=== PATIENT | female | born 1945 | race Caucasian/White ===

== ENCOUNTER 2017-03-25 10:06 | Day surgery (SDC) | payer OTHER ==
[2017-03-25] MEDS ORDERED: Lactated Ringer's 500 ML IV ONE (10:37)
[2017-03-25 10:44] VITALS: O2SAT 96
[2017-03-25] MEDS ORDERED: Propofol 10 mg/ml Inj (20 ML) ONE (11:20)
[2017-03-25 14:18] VITALS: BP 131/71; PULSE 66; RESP 16; TEMP 98
== END 2017-03-25 14:19 | disposition home or self-care (01) ==
LOC: H.ENDO 10:06
PROVIDERS: ATTEND Internal Medicine Gastroenterology
DX: R10.13 Epigastric pain (principal); R12 Heartburn; E11.9 Type 2 diabetes mellitus without complications; E78.5 Hyperlipidemia, unspecified; I10 Essential (primary) hypertension; K31.9 Disease of stomach and duodenum, unspecified; K31.7 Polyp of stomach and duodenum; R14.0 Abdominal distension (gaseous)
CPT/HCPCS: 43239; 82948; 88305; J2001; J2704; J7120

== ENCOUNTER 2017-04-08 09:22 | Day surgery (SDC) | payer OTHER ==
[2017-04-08] MEDS ORDERED: Lactated Ringer's 500 ML IV ONE (09:42)
[2017-04-08] MEDS ORDERED: Propofol 10 mg/ml Inj (20 ML) ONE (10:39)
[2017-04-08 11:09] VITALS: TEMP 97
[2017-04-08 11:19] VITALS: BP 119/59; PULSE 68; RESP 13
== END 2017-04-08 11:51 | disposition home or self-care (01) ==
LOC: H.ENDO 09:22
PROVIDERS: ATTEND Internal Medicine Gastroenterology
DX: Z12.11 Encounter for screening for malignant neoplasm of colon (principal); E11.9 Type 2 diabetes mellitus without complications; E78.5 Hyperlipidemia, unspecified; I10 Essential (primary) hypertension; K64.8 Other hemorrhoids
CPT/HCPCS: 45378; 82948; J2001; J2704; J7120